=== PATIENT | female | born 2000 | race African-American/Black ===

== ENCOUNTER 2020-07-04 20:59 | Emergency (ER) | payer OTHER ==
[~2020-07-04] VITALS: Ht 175.3 cm; Wt 86.2 kg
[2020-07-04 21:02] VITALS: BP 131/65
--- NOTE | 2020-07-04 21:02 | NUR ---
TO BED # 02 AMBULATORY
--- NOTE | 2020-07-04 21:10 | NUR ---
PATIENT PRESENTS TO ED WITH C/O PAINFUL URINATION . DENIES N/V/D; SKIN IS PINK/WARM/DRY; AAOX4 WITH EVEN AND STEADY GAIT; LUNGS CLEAR BL; HR EVEN AND REGULAR; PT DENIES ANY FEVER, CP, SOB, OR COUGH AT THIS TIME; PATIENT STATES PAIN OF 4/10 AT THIS TIME; VSS; PATIENT POSITIONED FOR COMFORT; HOB ELEVATED; BEDRAILS UP X2; BED DOWN. ER MD MADE AWARE OF PT STATUS.
--- NOTE | 2020-07-04 22:00 | NUR ---
RESTING IN BED WITH EYES CLOSED, RESPIRATIONS REGULAR AND UNLABORED
[2020-07-04 22:15] VITALS: BP 131/65
--- NOTE | 2020-07-04 22:22 | NUR ---
Patient discharged with v/s stable. Written and verbal after care instructions given and explained. Patient alert, oriented and verbalized understanding of instructions. Ambulatory with steady gait. All questions addressed prior to discharge. ID band removed. Patient advised to follow up with PMD. Rx of KEFLEX, AND PHENAZOPYRIDINE HYDROCHLORIDE given. Patient educated on indication of medication including possible reaction and side effects. Opportunity to ask questions provided and answered.
== END 2020-07-04 22:22 | disposition home or self-care (01) ==
LOC: MED 20:59
DX: N39.0 Urinary tract infection, site not specified (principal)
CPT/HCPCS: 36415; 81002; 81025; 87491; 99283